=== PATIENT | female | born 1960 | race Hispanic/Latino ===

== ENCOUNTER 2017-08-06 11:41 | Emergency (ER) | payer OTHER ==
[~2017-08-06] VITALS: Ht 160 cm; Wt 68.0 kg
[2017-08-06 11:41] VITALS: BP 142/94
[~2017-08-06 11:41] MED LIST: BENADRYL50 MG ORAL; ERYTHROMYCIN3.5 GM RIGHT EYE; NKM
[2017-08-06] MEDS ORDERED: TransDerm Scop 1mg/72HR Patch TDERMAL ONE (12:15)
[2017-08-06 12:36] LABS: HEMATOCRIT 43.6 % (37.0-47.0); HEMOGLOBIN 14.8 G/DL (12.0-16.0); MEAN CORPUSCULAR VOLUME 92 FL (80-99); PLATELET COUNT 278 K/UL (150-450); RED BLOOD COUNT 4.76 M/UL (4.20-5.40); RED CELL DISTRIBUTION WIDTH 11.4 % (11.6-14.8); WHITE BLOOD COUNT 8.8 K/UL (4.8-10.8)
--- NOTE | 2017-08-06 12:40 | Emergency Room Report ---
History of Present Illness General Chief Complaint: Vomiting Source: EMS Present Illness HPI 57 y/o female c/o vertigo since this morning. Patient states that she had gone up to the bathroom and upon sitting up became dizzy. Patient states that when she looks up and down her dizziness is worse and that her symptoms improved with closing her eyes. Patient states that she's had episodes like this before and was evaluated and told that it was secondary to stress. Patient states that she is not taking medication for her symptoms and denies any chronic illnesses. Patient denies any chest pain, shortness breath, headache, vision changes, sore throat, fever, abdominal pain, muscle weakness, rashes, facial droop. Allergies: Coded Allergies: No Known Allergies (Unverified , 01/12/15) Patient History Past Medical History: see triage record Past Surgical History: none Pertinent Family History: none Last Menstrual Period: na Now: No Reviewed Nursing Documentation: PMH: Agreed; PSxH: Agreed Nursing Documentation-PMH Past Medical History: No History, Except For Hx Hypertension: Yes Review of Systems All Other Systems: negative except mentioned in HPI Physical Exam Vital Signs Date Time Temp Pulse Resp B/P (MAP) Pulse Ox O2 Delivery O2 Flow Rate FiO2 08/06/17 11:19 97.5 68 18 142/94 98 Room Air 97.5 Sp02 EP Interpretation: reviewed, normal General Appearance: no apparent distress, alert, GCS 15, non-toxic Head: normocephalic, atraumatic Eyes: bilateral eye normal inspection, bilateral eye PERRL, bilateral eye EOMI ENT: hearing grossly normal, normal pharynx, no angioedema, normal voice Neck: full range of motion, supple/symm/no masses Respiratory: chest non-tender, lungs clear, normal breath sounds, speaking full sentences Cardiovascular #1: regular rate, rhythm, no edema Gastrointestinal: normal bowel sounds, non tender, soft, non-distended, no guarding, no rebound Musculoskeletal: back normal, gait/station normal, normal range of motion, non- tender Neurologic: alert, oriented x3, responsive, online education manager III-XII nml as tested, motor strength/tone normal, sensory intact, speech normal, other - Pronator Drift, Heal to Mcleod and Romberg negative, nystagmus - + Michele-Hallpike Psychiatric: judgement/insight normal, memory normal, mood/affect normal, no suicidal/homicidal ideation Skin: normal color, no rash, warm/dry, well hydrated Lymphatic: no adenopathy Medical Decision Making ER Course Pt. presents to the ED c/o Vertigo Ddx considered but are not limited to BPPV, labrynthitis, orthostatic hypotension, OR, CVA Vital signs: are WNL, pt. is afebrile H&PE are most consistent with BPPV ORDERS: CT Head, CBC and CMP were negative ED INTERVENTIONS: Scopolamine w/ Improvement of sxs. DISCHARGE: At this time pt. is stable for d/c to home. Will provide printed patient care instructions, and any necessary prescriptions. Care plan and follow up instructions have been discussed with the patient prior to discharge. EKG Diagnostic Results EP Interpretation: NSR Rate: normal Rhythm: NSR ST Segments: no acute changes CT/MRI/US Diagnostic Results CT/MRI/US Diagnostic Results : Imaging Test Ordered: CT Head w/o Contrast Impression CT Head shows no mass effect, edema or acute bleed. Impression is normal CT head. Last Vital Signs Date Time Temp Pulse Resp B/P (MAP) Pulse Ox O2 Delivery O2 Flow Rate FiO2 08/06/17 11:41 97.5 18 142/94 98 Room Air 97.5 08/06/17 11:19 68 Status: improved Disposition: HOME, SELF-CARE Condition: Stable Referrals: [facility],REFERRING (PCP) Patient Instructions: Benign Positional Vertigo Additional Instructions: Take medication as directed. Patient is to follow up with PCP within the next 3- 5 days. Advised patient to go to ER if patient experiences new or severe headache, temperature greater than 100.4F (38C), seeing double or having trouble seeing clearly, trouble speaking or hearing, weakness in an arm or leg, an inability to walk without assistance, passing out, numbness or tingling, chest pain, or vomiting that will not stop. NACHO PAIGE August 06, 2017 12:40
[2017-08-06 12:43] LABS: ANION GAP 10 mmol/L (5-15); BLOOD UREA NITROGEN 13 mg/dL (7-18); CALCIUM 8.9 MG/DL (8.5-10.1); CARBON DIOXIDE 24 MMOL/L (21-32); CHLORIDE 103 MMOL/L (98-107); CREATININE 0.5 MG/DL (0.55-1.30); POTASSIUM 3.9 MMOL/L (3.5-5.1); SODIUM 137 MMOL/L (136-145)
[2017-08-06 12:49] LABS: ALANINE AMINOTRANSFERASE 27 U/L (12-78); ALBUMIN 3.8 G/DL (3.4-5.0); ALBUMIN/GLOBULIN RATIO 0.9 (1.0-2.7); ALKALINE PHOSPHATASE 81 U/L (46-116); ASPARTATE AMINO TRANSFERASE 16 U/L (15-37); BILIRUBIN,TOTAL 0.4 MG/DL (0.2-1.0)
--- NOTE | 2017-08-06 13:36 | Diagnostic Imaging Report ---
Indication: Dizziness Technique: Contiguous 5 mm thick transaxial imaging of the head obtained in a Siemens Sensation [address] scanner. Soft tissue and bone windows generated. Automatic Exposure Control was utilized. Total Dose length Product (DLP): 1375.[address] Dose Index Volume (CTDIvol): 70.38 mGy Comparison: none Findings: The size and configuration of the cortical sulci, basal cisterns, and ventricles are within normal limits for age. There is no mass effect, midline shift, or edema identified. There is no evidence of acute hemorrhage or abnormal intra-axial or extra-axial fluid collections. The bones and soft tissues are unremarkable. Impression: No mass effect, edema or acute bleed. The CT scanner at [facility] is accredited by the [employer] and the scans are performed using dose optimization techniques as appropriate to a performed exam including Automatic Exposure control.
[2017-08-06 13:59] VITALS: BP 120/75
--- NOTE | 2017-08-07 16:46 | Cardiology Report ---
APPROVED REPORT EKG Measurement Heart [id number] Normal sinus rhythm Possible Left atrial enlargement Nonspecific T wave abnormality Abnormal ECG
== END 2017-08-06 14:15 | disposition home or self-care (01) ==
LOC: EDBD 11:41 → EMR 12:28
DX: R42 Dizziness and giddiness (principal); I10 Essential (primary) hypertension
CPT/HCPCS: 36415; 70450; 80053; 85007; 85025; 93005; 99284